=== PATIENT | male | born 2000 | race Two or more races ===

== ENCOUNTER 2023-06-05 12:18 | Emergency (ER) | payer OTHER, SELFPAY ==
[2023-06-05 12:36] VITALS: BP 110/67; PULSE 82; RESP 18; TEMP 37.1; O2SAT 98; BMI 19.8
--- NOTE | 2023-06-05 12:36 | ED.NAVMDI ---
HPI - Nausea/Vomiting/Diarrhea General Chief complaint: General Medical Stated complaint: Diarrhea Cough Time Seen by Provider: 06/05/23 12:51 Source: patient and family (Mother) Mode of arrival: ambulatory Limitations: no limitations History of Present Illness HPI Narrative: Patient is a 23-year-old male presenting to the emergency department with complaint of headache, sore throat, nasal congestion, cough, fatigue and diarrhea for 5 days. Patient reports he has had 1 episode of diarrhea per day for the past 5 days. Patient's mother states that patient's grandmother has similar symptoms at home. Patient denies fevers or abdominal pain. He denies nausea or vomiting. Mother reports that patient has many food allergies, so is unsure if the diarrhea is related to that. Patient denies the headache was worse at onset, states is not worst headache of life. Denies any vision changes. Denies any dizziness or lightheadedness, syncope. MD elicited complaint: diarrhea and other (Cough, nasal congestion, sore throat, headache) Pertinent past history: other (Many food allergies) Onset (ago): day(s) Description of diarrhea: loose Associated nausea: No Associated abdominal pain: No Location of pain: none Context: sick contacts Associated symptoms: cough, headaches, fatigue and other (Sore throat) Treatment prior to arrival: none Related Data Allergies Allergy/AdvReac Type Severity Reaction Status Date / Time egg [EGGS] Allergy Unknown RASH Unverified 06/19/20 18:37 feathers Allergy Unknown RASH Unverified 06/19/20 18:37 orange Allergy Unknown RASH Unverified 06/19/20 18:37 peas Allergy Unknown RASH TO Unverified 06/19/20 18:37 SWEET PEAS shellfish derived Allergy Unknown RASH Unverified 06/19/20 18:37 [SHELLFISH DERIVED] strawberry [STRAWBERRY] Allergy Unknown RASH Unverified 06/19/20 18:37 bees Allergy Unknown anaphylaxis Uncoded 09/11/19 00:00 Cockroaches Allergy Unknown Uncoded 09/11/19 00:00 DUST Allergy Unknown RASH Uncoded 06/19/20 18:37 Dust Allergy Unknown Uncoded 09/11/19 00:00 peanut Allergy Unknown anaphylaxis Uncoded 09/11/19 00:00 PEANUT BUTTER Allergy Unknown RASH Uncoded 06/19/20 18:37 Seafood Allergy Unknown Uncoded 09/11/19 00:00 Review of Systems Review of Systems: As per HPI. Yes all other systems are reviewed and are negative Constitutional: Constitutional: Reports as per HPI Gastrointestinal: Gastrointestinal: Denies nausea PMFSH Social History Social History Advance Directives: No Advance Directives Information Provided: Yes Physical Exam Vital Signs: Vital Signs: Last Vital Signs Temp 98.7 F 06/05/23 12:36 Pulse 82 06/05/23 12:36 Resp 18 06/05/23 12:36 BP 110/67 06/05/23 12:36 Pulse Ox 98 06/05/23 12:36 O2 Del Method Room Air 06/05/23 12:36 BMI result Body Mass Index 19.8 Vital signs have been reviewed and appear to be correct. Blood pressure normal. Heart rate normal. Respiratory rate normal. Temperature normal. Oxygen saturation normal. Const: General: cooperative, healthy appearing and no acute distress Orientation/consciousness: oriented to person, oriented to place, oriented to time and patient oriented x3 Limitations: no limitations HEENT: Head: Yes normocephalic and Yes atraumatic Ears: external ears normal, TM's normal bilaterally, EAC's normal and mastoids normal bilaterally General nose exam: Normal external nose present, Normal nares present, Normal nasal mucous membranes and turbinates present and No nasal discharge present Face and sinus: Yes sinuses nontender and Yes face symmetric Mouth: Normal oral and palatal mucosa present, lip normal, tongue normal, oropharynx normal and moist mucous membranes Throat: Yes posterior oropharynx normal, Yes uvula midline and No uvular edema Eyes: Pupils: Equal, round and reactive pupils present Neck: Neck: Yes normal visual inspection and Yes supple Resp: Effort & Inspection: normal respiratory effort and able to speak in complete sentences Auscultation: clear to auscultation bilaterally Cardio: Rate: regular rate Rhythm: regular rhythm Heart sounds: S1 normal heart sound present and S2 normal heart sound present GI: Inspection: Yes normal to inspection Palpation (GI): Soft to palpation and nontender Auscultation: normoactive bowel sounds : General: Yes no CVA tenderness Back/Spine/Pelvis: Back: no CVA tenderness Skin: General skin exam: elasticity normal and turgor normal Neuro: General: oriented to person, oriented to place, oriented to time, patient oriented x3, moves all extremities, no focal motor deficits and CN's II-XI intact bilaterally Cranial nerves: Yes Equal, round and reactive pupils present Cognition (Neuro): normal cognition Extrem: General: Yes full ROM, Yes no pedal edema and Yes no calf tenderness Psych: Mental Status: mental status grossly normal Affect: normal affect Thought process: Normal thought process present Course Course Course Narrative: This is a rapid medical exam. Deferred additional HPI, ROS, PE to primary provider. 23 yo male with history of asthma here with complaints of cough, congestion, diarrhea x 5 days. Reports one episode of diarrea per day. No abdominal pain, vomiting, fevers. Another family member has similar symptoms. Will obtain testing for flu, covid, rsv. VSS Medical Decision Making Medical Decision Making [facility] Narrative: Patient is a 23-year-old male presenting to the emergency department with complaint of headache, sore throat, nasal congestion, cough, fatigue and diarrhea for 5 days. On exam patient is awake, A+Ox3, VS WNL, afebrile, normal neurological exam without focal deficits, TMs normal bilaterally, posterior oropharynx normal, no deviation or swelling of uvula, no cervical lymphadenopathy, lung sounds clear to auscultation throughout, abdomen soft and nontender, no guarding or rebound tenderness, no CVA tenderness. Given reported symptoms and physical exam findings, initial differential includes viral illness, COVID, influenza, RSV strep pharyngitis, food poisoning. COVID/flu/RSV swab negative. Patient specifically requesting testing for a urinary tract infection, will order UA. Will also test for strep. Will add GI panel patient is able to provide specimen. No evidence of infection on UA. Strep negative. Patient unable to provide stool specimen while in the ED. Results discussed with patient, advised likely viral infection which will resolve on its own with time and rest. Instructed patient to ensure adequate fluid intake, can use Tylenol or ibuprofen as needed for discomfort. Instructed patient to follow-up with primary care provider this week. Return precautions discussed at bedside. Patient verbalized understanding of and agreement with plan. Differential Diagnosis Differential Diagnoses: The differential diagnosis associated with the presentation includes As per [facility]. Lab Data [facility] Lab Attestation statement: I reviewed the patient's lab results. As per MDM. Labs: Lab Results 06/05/23 06/05/23 06/05/23 Range/Units 12:43 14:23 14:23 Urine Color Yellow Urine Appearance Clear Urine pH 7.0 (5.0-9.0) Ur Specific [place] 1.015 (1.005-1.025) Urine Protein Negative (Neg-Trace) mg/dL Urine Glucose (UA) Negative (Negative) mg/dL Urine Ketones 15 (Negative) mg/dL Urine Blood Negative (Negative) Urine Nitrite Negative (Negative) Ur Leukocyte Esterase Negative (Negative) Influenza Type A (PCR) NEGATIVE (Negative) Influenza Type B (PCR) NEGATIVE (Negative) RSV RNA Qual (PCR) NEGATIVE (Negative) SARS-CoV-2 RNA (RT-PCR) NEGATIVE (Negative) S. pyogenes GrpA YAN Negative (Negative) Independent Historian Clinical information obtained from an independent historian. History obtained from or confirmed by: Parent (mother) External Record Review External record reviewed: Inpatient record, Office record and Outpatient record Discharge Plan Discharge Clinical Impression: Viral illness Patient Disposition: Home, Self-Care Instructions: Viral Syndrome (ED) Additional Instructions: You were evaluated in the emergency department today for symptoms which are likely related to a viral illness. Be sure to get adequate rest and drink adequate fluids. You can use 650 mg of Tylenol or 600 mg of ibuprofen every 6 hours as needed for discomfort. You can gargle with warm salt water several times daily for your sore throat. Your COVID, flu, RSV, and strep tests were all negative today. Please follow-up with your primary care provider this week. Return to the emergency department if you develop abdominal pain, persistent vomiting, fevers 100.4? F or greater, chest pain, shortness of breath or any other concerning symptoms.
[2023-06-05 13:27] LABS: Influenza A PCR NEGATIVE (Negative); Influenza B PCR NEGATIVE (Negative); Resp Syncy Virus RNA Qual PCR NEGATIVE (Negative); SARS COV2 PCR INHOUSE NEGATIVE (Negative)
[2023-06-05 14:37] LABS: Appearance Urine Clear; Color Urine Yellow; Glucose Urine UA Negative (Negative); Leukocyte Esterase Urine Negative (Negative); Nitrite Urine Negative (Negative); Specific Gravity - Urine 1.015 (1.005-1.025); Urine Blood Negative (Negative); Urine Ketones 15 mg/dL (Negative); Urine Protein Negative (Neg-Trace)
[2023-06-05 14:43] LABS: IDNOW Serial# 08D9AD1C; Strep A Nucleic Acid Negative (Negative)
== END 2023-06-05 15:24 | disposition home or self-care (01) ==
PROVIDERS: Nurse Practitioner Family; Registered Nurse Emergency; Emergency Provider Emergency Medicine
DX: R11.2 Nausea with vomiting, unspecified (principal); R05.9 Cough, unspecified; R19.7 Diarrhea, unspecified; Z20.822 Contact with and (suspected) exposure to COVID-19; Z20.828 Contact with and (suspected) exposure to other viral communicable diseases; Z79.899 Other long term (current) drug therapy
CPT/HCPCS: 0241U; 81003; 87651; 99284